=== PATIENT | male | born 1990 | race African-American/Black ===

== ENCOUNTER 2021-09-28 13:07 | Emergency (ER) | payer BC ==
[~2021-09-28] VITALS: Ht 180.3 cm; Wt 111.0 kg
--- NOTE | 2021-09-28 15:08 | PHYS DOC ---
Past Medical History Past Medical History: No Pertinent History (AMY BEEBE APRN) Past Surgical History: No Surgical History (AMY BEEBE APRN) Smoking Status: Never Smoker Alcohol Use: None Drug Use: None (AMY BEEBE APRN) General Adult EDM: Chief Complaint: GROIN PAIN HPI: HPI: Patient is a 31-year-old male who presents today with groin pain. Patient states he was working out a couple weeks ago and did a heavy leg workout and since that time he has had groin pain and scrotal pain. Patient states he was seen in the urgent care a couple of days ago had a sexually transmitted infection check and a UA which were all negative for infection, he also at the time had a ultrasound of his scrotum done which he said today they called and said was normal. He states he has a appointment with his primary care physician on Friday for further management of his groin pain but he came today to see if there is anything different that we can do. (AMY BEEBE APRN) Review of Systems: Review of Systems: Constitutional: Denies fever or chills. [] Eyes: Denies change in visual acuity. [] HENT: Denies nasal congestion or sore throat. [] Respiratory: Denies cough or shortness of breath. [] Cardiovascular: Denies chest pain or edema. [] GI: Denies abdominal pain, nausea, vomiting, bloody stools or diarrhea. [] : Denies dysuria. [] Musculoskeletal: Denies back pain or joint pain. [] Integument: Denies rash. [] Neurologic: Denies headache, focal weakness or sensory changes. [] Endocrine: Denies polyuria or polydipsia. [] Lymphatic: Denies swollen glands. [] Psychiatric: Denies depression or anxiety. [] (AMY BEEBE APRN) Heart Score: C/O Chest Pain: N/A Risk Factors: Risk Factors: DM, Current or recent (<one month) smoker, HTN, HLP, family history of CAD, obesity. Risk Scores: Score 0 - 3: 2.5% MACE over next 6 weeks - Discharge Home Score 4 - 6: 20.3% MACE over next 6 weeks - Admit for Clinical Observation Score 7 - 10: 72.7% MACE over next 6 weeks - Early Invasive Strategies (AMY BEEBE APRN) Physical Exam: PE: Constitutional: Well developed, well nourished, no acute distress, non-toxic appearance. [] HENT: Normocephalic, atraumatic, bilateral external ears normal, oropharynx moist, no oral exudates, nose normal. [] Eyes: PERRLA, EOMI, conjunctiva normal, no discharge. [] Neck: Normal range of motion, no tenderness, supple, no stridor. [] Cardiovascular:Heart rate regular rhythm, no murmur [] Lungs & Thorax: Bilateral breath sounds clear to auscultation [] Abdomen: Bowel sounds normal, soft, no tenderness, no masses, no pulsatile masses. [] Skin: Warm, dry, no erythema, no rash. [] Back: No tenderness, no CVA tenderness. [] Extremities: No tenderness, no cyanosis, no clubbing, ROM intact, no edema. [] Neurologic: Alert and oriented X 3, normal motor function, normal sensory function, no focal deficits noted. [] Psychologic: Affect normal, judgement normal, mood normal. [] (AMY BEEBE APRN) Current Patient Data: Labs: Laboratory Tests Test 09/28/21 16:05 Urine Collection Type Unknown Urine Color Yellow Urine Clarity Clear Urine pH 6.5 Urine Specific [place] >=1.030 Urine Protein Negative mg/dL Urine Glucose (UA) Negative mg/dL Urine Ketones (Stick) Trace mg/dL Urine Blood Negative Urine Nitrite Negative Urine Bilirubin Negative Urine Urobilinogen Dipstick 1.0 mg/dL Urine Leukocyte Esterase Negative Urine RBC 0 /HPF Urine WBC 0 /HPF Urine Squamous Epithelial Cells Occ /LPF Urine Bacteria 0 /HPF Urine Mucus Slight /LPF Vital Signs: Vital Signs Date Time Temp Pulse Resp B/P (MAP) Pulse Ox O2 Delivery O2 Flow Rate FiO2 09/28/21 15:30 97.8 63 16 108/95 (99) 98 Room Air 97.8 (AMY BEEBE APRN) EKG: EKG: [] (AMY BEEBE APRN) Radiology/Procedures: Radiology/Procedures: [REASON: testicular pain PROCEDURE: TESTICULAR/SCROTUM STUDY: US testicular CLINICAL HISTORY: Testicular pain. COMPARISON: None. TECHNIQUE: Ultrasound images of the scrotum was performed with morrissey-scale and color doppler. FINDINGS: The right testicle measures 3.6 x 3.3 x 2.2 cm and the left testicle 3.2 x 2.7 x 1.9 cm. The right epididymal head measures 1 x 0.7 x 1.4 cm and the left 0.9 x 0.8 x 1.1 cm. Homogeneous echotexture of the testicles. Maintained Doppler flow which is relatively symmetric. Mildly heterogeneous epididymis on both sides. No hypervascularity. Bilateral varicoceles. Small left hydrocele. No localized abnormality of the scrotal soft tissues or hyperemia. IMPRESSION: 1. Bilateral varicoceles. Small hydrocele on the left without significant complexity. 2. Unremarkable testicular echotexture and Doppler flow is maintained. 3. Mildly heterogeneous epididymis on both sides but similar in size and without any ancillary findings to indicate epididymitis. Electronically signed by: KEITH DELGADILLO MD (09/28/2021 4:12 PM) [facility] ] (AMY BEEBE APRN) Course & Med Decision Making: Course & Med Decision Making Pertinent Labs and Imaging studies reviewed. (See chart for details) [] (AMY BEEBE APRN) Dragon Disclaimer: Dragon Disclaimer: This electronic medical record was generated, in whole or in part, using a voice recognition dictation system. (AMY BEEBE APRN) Departure Departure Impression: Primary Impression: Bilateral varicoceles Additional Impression: Hydrocele in adult Disposition: 01 HOME / SELF CARE / HOMELESS Condition: STABLE Referrals: NO PCP (PCP) LUBNA BRADY MD Patient Instructions: Testicular Problems and Self-Exam Additional Instructions: You will need to follow-up with your primary care or the urologist that has been provided for you for further management of your testicular pain [id number] ibuprofen and/or Tylenol as labeled directed for pain Wear scrotal support at all times to help with pain control. Scripts Diclofenac Sodium (DICLOFENAC SODIUM) 50 Mg Tablet. 1 TAB PO PRN BID PRN for PAIN, #20 TAB 1 Refill Prov: AMY BEEBE APRN 09/28/21 Attending Signature Attending Signature I have reviewed the PA/RESOURCE ENGINEER's note and plan of care. I was available for consultation as needed during the patient's visit in the emergency department. I agree with the clinical impression, plan, and disposition. (BC CAZARES DO) MAY BEEBE APRN Sep 28, 2021 15:08 BC CAZARES DO Sep 29, 2021 11:12
[2021-09-28 15:30] VITALS: BP 108/95
--- NOTE | 2021-09-28 16:14 | RAD ---
STUDY: US testicular CLINICAL HISTORY: Testicular pain. COMPARISON: None. TECHNIQUE: Ultrasound images of the scrotum was performed with morrissey-scale and color doppler. FINDINGS: The right testicle measures 3.6 x 3.3 x 2.2 cm and the left testicle 3.2 x 2.7 x 1.9 cm. The right ep ididymal head measures 1 x 0.7 x 1.4 cm and the left 0.9 x 0.8 x 1.1 cm. Homogeneous echotexture of the testicles. Maintained Doppler flow which is relatively symmetric. Mildly heterogeneous epididymis on both sides. No hypervascularity. Bilateral varicoceles. Small left hydrocele. No localized abnormality of the scrotal soft tissues or hyperemia. IMPRESSION: 1. Bilateral varicoceles. Small hydrocele on the left without significant complexity. 2. Unremarkable testicular echotexture and Doppler flow is maintained. 3. Mildly heterogeneous epididymis on both sides but similar in size and without any ancillary findin gs to indicate epididymitis. Electronically signed by: KEITH DELGADILLO MD (09/28/2021 4:12 PM) [facility]
[2021-09-28 16:19] LABS: BILIRUBIN,URINE NEGATIVE (NEG); CLARITY,URINE CLEAR; COLOR,URINE YELLOW; NITRITE,URINE NEGATIVE (NEG); PH,URINE 6.5 (<5.0-8.0); PROTEIN,URINE NEGATIVE (NEG-TRACE)
[2021-09-28 16:30] LABS: BACTERIA,URINE 0 /HPF (0-FEW); RBC,URINE 0 /HPF (0-2); WBC,URINE 0 /HPF (0-4)
[2021-09-28] MEDS ORDERED: DICL50TA4 PO (16:39)
== END 2021-09-28 16:47 | disposition home or self-care (01) ==
LOC: ER 13:07
DX: I86.1 Scrotal varices (principal); N43.3 Hydrocele, unspecified
CPT/HCPCS: 76870; 81001; 99284-25